=== PATIENT | female | born 1995 | race African-American/Black ===

== ENCOUNTER 2016-12-16 15:56 | Emergency (ER) | payer SELFPAY ==
[2016-12-16 16:09] VITALS: BP 103/46
[2016-12-16] MEDS ORDERED: Ibuprofen TAB* 600 MG PO ONE (17:19)
--- NOTE | 2016-12-16 17:26 | UC ---
Head Injury HPI - HPI Summary HPI Summary: tripped on her way to the bathroom at 3am today, struck left bahai area on corner of bed. No LOC. Able to get up right away. Went back to bed, then got up and went to work. Progressive headache and sore back as the day went on. Headache is circumferential. Tenderness at left bahai, no significant bruising or swelling evident. No nausea or vomiting. No trouble walking, though describes a mild dizziness "like I'll tip sideways". No recent head injuries. Didn't take anything for headache. Vincent noticed she was subdued and not her usual self, sent her home early and told her to get evaluated. - History Of Current Complaint Chief Complaint: Felix Stated Complaint: HEAD INJURY WITH DIZZINESS Time Seen by Provider: 12/16/16 17:11 Hx Obtained From: Patient Hx Last Menstrual Period: 12/03/16 Onset/Duration: Sudden Onset, Lasting Hours - 14 Severity Currently: Mild Severity Initially: Moderate Character: Dull, Throbbing, Pressure Aggravating Factor(s): Other - noise, bright lights Alleviating Factor(s): Nothing Associated Signs And Symptoms: Positive: Neck Pain - mild, just now apparent. Negative: LOC (Time In Secs./Mins/Hrs), LOC Duration Unknown, Confusion, Memory Loss, Seizure, Epistaxis, Dental Malocclusion, Nausea, Vomiting - Risk Factors SDH Risk Factor: Negative - Allergies/Home Medications Allergies/Adverse Reactions: Allergies Allergy/AdvReac Type Severity Reaction Status Date / Time Latex Allergy Severe THROAT Verified 10/25/16 16:42 SWELLING, ITCHING Penicillins Allergy Mild Hives Verified 10/25/16 16:40 Home Medications: Home Medications NK [No Home Medications Reported] 12/16/16 [History Confirmed 12/16/16] PMH/Surg Hx/FS Hx/Imm Hx Endocrine History Of: Denies: Diabetes, Thyroid Disease, Hyperthyroidism, Hypothyroidism, Dyslipidemia Cardiovascular History Of: Denies: Cardiac Disorders, Hypertension, Pacemaker/ICD, Myocardial Infarction , Congestive Heart Failure, Atrial Fibrillation, Deep Vein Thrombosis, Bleeding Disorders Respiratory History Of: Reports: Asthma Denies: COPD, Bronchitis, Pneumonia, Pulmonary Embolism GI/ History Of: Denies: Gastroesophageal Reflux, Ulcer, Gastrointestinal Bleed, Gall Bladder Disease, Kidney Stones, Diverticulitis, Renal Disease, Urosepsis Neurological History Of: Denies: TIA, CVA, Dementia, Seizures, Migraine Psychological History Of: Denies: Anxiety, Depression, Bipolar Disorder, Schizophrenia, Post Traumatic Stress Disorder Cancer History Of: Denies: Lung Cancer, Colorectal Cancer, Breast Cancer, Prostate Cancer, Cervical Cancer Other History Of: Negative For: HIV, Hepatitis B, Hepatitis C, Anticoagulant Therapy - Surgical History Surgical History: Yes Surgery Procedure, Year, and Place: Hernia repair as child - Family History Known Family History: Positive: Hypertension, Diabetes Negative: Cardiac Disease - Social History Occupation: Employed Full-time - works 2 jobs Lives: With Family Alcohol Use: None Substance Use Type: None Smoking Status (MU): Never Smoked Tobacco Household Exposure Type: Cigarettes Review of Systems Constitutional: Fatigue Skin: Other - tenderness left bahai Eyes: Photophobia - mild ENT: Negative Respiratory: Negative Cardiovascular: Negative Gastrointestinal: Negative Genitourinary: Negative Motor: Negative Neurovascular: Negative Musculoskeletal: Negative Neurological: Headache, Other - slight dizziness, doesn't affect walking Psychological: Negative All Other Systems Reviewed And Are Negative: Yes Physical Exam Triage Information Reviewed: Yes Appearance: Well-Appearing, No Pain Distress, Well-Nourished Vital Signs: Initial Vital Signs Temp 98 F 12/16/16 16:04 Pulse 83 12/16/16 16:04 Resp 16 12/16/16 16:04 BP 103/46 12/16/16 16:04 Pulse Ox 98 12/16/16 16:04 Vital Signs Reviewed: Yes Eye Exam: Normal Eyes: Positive: Conjunctiva Clear, Other: - fundi flat with sharp disc margins ENT Exam: Normal ENT: Positive: Pharynx normal, TMs normal - no hemotympanum Dental Exam: Normal Neck exam: Normal Neck: Positive: Supple, Tenderness @ - mild, diffuse, posterior muscles Respiratory Exam: Normal Cardiovascular Exam: Normal Musculoskeletal Exam: Other - several spots on upper back that are tender, she says she twisted and back hit floor when she fell Neurological Exam: Normal Neurological: Positive: Alert, Muscle Tone Normal Psychological Exam: Normal Skin Exam: Normal - no bruising or swelling apparent around left bahai Head Injury Course/Dx - Differential Dx/Diagnosis Differential Diagnosis/HQI/PQRI: Cerebral Contusion, Concussion Without LOC, Intracranial Bleed Provider Diagnoses: mild concussion Discharge - Discharge Plan Condition: Stable Disposition: HOME Patient Education Materials: Concussion (ED) Forms: *Work Release Referrals: No Primary Care Phys,NOPCP [Primary Care Provider] -
== END 2016-12-16 17:33 | disposition home or self-care (01) ==
LOC: UCEAST 15:56
DX: S06.0X0A Concussion without loss of consciousness, initial encounter (principal); W01.190A Fall on same level from slipping, tripping and stumbling with subsequent striking against furniture, initial encounter; Y93.01 Activity, walking, marching and hiking; Y92.009 Unspecified place in unspecified non-institutional (private) residence as the place of occurrence of the external cause; M54.2 Cervicalgia
CPT/HCPCS: 99211; A9270-GY; G0463

== ENCOUNTER 2017-03-29 11:18 | Emergency (ER) | payer SELFPAY ==
[2017-03-29 11:32] VITALS: BP 113/71
--- NOTE | 2017-03-29 11:59 | UC ---
Abdominal Pain Female HPI - HPI Summary HPI Summary: Woke feeling sweaty this morning with sharp RLQ abdominal pain. Feels somewhat like ovarian cysts she's had in the past, but this pain is unrelenting. Has had abdominal hernia repair, no other belly surgeries. - History of Current Complaint Hx Obtained From: Patient Hx Last Menstrual Period: 02/28/17 ?: No Onset/Duration: Gradual Onset, Lasting Hours Timing: Constant Severity Initially: Moderate Severity Currently: Moderate Location: Discrete At: RLQ Radiates: No Character: Sharp Aggravating Factor(s): Movement, Deep Breaths Alleviating Factor(s): Nothing Associated Signs and Symptoms: Positive: Nausea <Laila Michaels - Last Filed: 03/29/17 12:08> <Arlene Esposito - Last Filed: 03/29/17 12:41> - History of Current Complaint Chief Complaint: UCAbdominalPain Stated Complaint: RIGHT SIDE PAIN Time Seen by Provider: 03/29/17 11:34 Allergies/Adverse Reactions: Allergies Allergy/AdvReac Type Severity Reaction Status Date / Time Latex Allergy Severe THROAT Verified 03/29/17 11:32 SWELLING, ITCHING Penicillins Allergy Mild Hives Verified 03/29/17 11:32 Home Medications: Home Medications Acetaminophen [Acetaminophen Extra Stren] 2 tab PO Q6HR PRN 03/29/17 [History Confirmed 03/29/17] PMH/Surg Hx/FS Hx/Imm Hx Endocrine History Of: Denies: Diabetes, Thyroid Disease, Hyperthyroidism, Hypothyroidism, Dyslipidemia Cardiovascular History Of: Denies: Cardiac Disorders, Hypertension, Pacemaker/ICD, Myocardial Infarction , Congestive Heart Failure, Atrial Fibrillation, Deep Vein Thrombosis, Bleeding Disorders Respiratory History Of: Reports: Asthma Denies: COPD, Bronchitis, Pneumonia, Pulmonary Embolism GI/ History Of: Denies: Gastroesophageal Reflux, Ulcer, Gastrointestinal Bleed, Gall Bladder Disease, Kidney Stones, Diverticulitis, Renal Disease, Urosepsis Neurological History Of: Denies: TIA, CVA, Dementia, Seizures, Migraine Psychological History Of: Denies: Anxiety, Depression, Bipolar Disorder, Schizophrenia, Post Traumatic Stress Disorder Cancer History Of: Denies: Lung Cancer, Colorectal Cancer, Breast Cancer, Prostate Cancer, Cervical Cancer Other History Of: Negative For: HIV, Hepatitis B, Hepatitis C, Anticoagulant Therapy - Surgical History Surgical History: Yes Surgery Procedure, Year, and Place: Hernia repair as child - Family History Known Family History: Positive: Hypertension, Diabetes Negative: Cardiac Disease - Social History Alcohol Use: Rare Substance Use Type: None Smoking Status (MU): Never Smoked Tobacco Household Exposure Type: Cigarettes <Laila Michaels - Last Filed: 03/29/17 12:08> Review of Systems Constitutional: Negative Skin: Negative Eyes: Negative ENT: Negative Respiratory: Negative Cardiovascular: Negative Gastrointestinal: Abdominal Pain Genitourinary: Negative Motor: Negative Neurovascular: Negative Musculoskeletal: Negative Neurological: Negative Psychological: Negative All Other Systems Reviewed And Are Negative: Yes <Laila Michaels - Last Filed: 03/29/17 12:08> Physical Exam Triage Information Reviewed: Yes Appearance: Well-Appearing, Well-Nourished, Pain Distress - mild-mod with movement Vital Signs: Initial Vital Signs Temp 97.5 F 03/29/17 11:27 Pulse 85 03/29/17 11:27 Resp 03/29/17 11:27 BP 113/71 03/29/17 11:27 Pulse Ox 99 03/29/17 11:27 Vital Signs Reviewed: Yes Eye Exam: Normal Eyes: Positive: Conjunctiva Clear ENT Exam: Normal ENT: Positive: Normal ENT inspection, Hearing grossly normal, Pharynx normal, TMs normal Dental Exam: Normal Neck exam: Normal Neck: Positive: Supple Respiratory Exam: Normal Respiratory: Positive: Chest non-tender, Lungs clear, Normal breath sounds, No respiratory distress, No accessory muscle use Cardiovascular Exam: Normal Cardiovascular: Positive: RRR <Laila Michaels - Last Filed: 03/29/17 12:08> Vital Signs: Initial Vital Signs Temp 97.5 F 03/29/17 11:27 Pulse 85 03/29/17 11:27 Resp 03/29/17 11:27 BP 113/71 03/29/17 11:27 Pulse Ox 99 03/29/17 11:27 <Arlene Esposito - Last Filed: 03/29/17 12:41> Abd Pain Female Course/Dx - Differential Dx/Diagnosis Provider Diagnoses: RLQ abdominal pain - Physician Notification/Consults Discussed Patient Care With: JAREN Vee Instructed by Provider To: MD Will See In ED <Laila Michaels - Last Filed: 03/29/17 12:08> Discharge <Laila Michaels - Last Filed: 03/29/17 12:08> <Arlene Esposito - Last Filed: 03/29/17 12:41> - Discharge Plan Condition: Stable Disposition: AGAINST MEDICAL ADVICE Referrals: No Primary Care Phys,NOPCP [Primary Care Provider] - Attestation Statement User Type: Provider - I was available for consult. This patient was seen by the JC. The patient was not presented to, seen by, or examined by me. -Ljrosales <Arlene Esposito - Last Filed: 03/29/17 12:41> Addendum entered and electronically signed by Laila Michaels NP 03/29/17 12:12 : UC Addendum Addendum: Additional physical exam notes: Abdomen soft and diffusely tender, positive tenderness at McBurney's point. +BS x 4quad, no mass no organomegaly. Ortho: moving all extremities normally with normal strength, no visible swelling Neuro: alert, stable gait, no tremor, normal speech Mood: affect appropriate skin: wwp, no visible lesions
== END 2017-03-29 12:07 | disposition left against medical advice (07) ==
LOC: UCEAST 11:18
DX: R10.31 Right lower quadrant pain (principal)
CPT/HCPCS: 81003; 84702; 99212; G0463

== ENCOUNTER 2019-03-05 13:09 | Emergency (ER) | payer OTHER ==
--- OUTSIDE RECORDS SUMMARY | 2019-03-05 13:13 | XMS REPORT | Continuity of Care Document ---
:1995 Author Organization [facility] Address [address], [place] [id number] Phone Care Team Providers Name Role Phone Laurita Carballo NP Unavailable Unavailable Allergies, Adverse Reactions, Alerts Substance Reaction Status Penicillins Hives/Skin Rash Active latex Trouble Breathing Active Medications Medication Instructions Dosage Effective Dates Status Comments (start - stop) ibuprofen 400 mg administer 2 tab PO in - Active tablet clinic Liletta 19.5 mcg/24 Insert IU - Active hour (4 years) intrauterine device Problems Condition Effective Dates (start - Clinical Status Comments stop) Human immunodeficiency virus [HIV] - counseling Encounter for test, result negative Encounter for insertion of intrauterine contraceptive device Encntr screen for infections w sexl mode of transmiss Encounter for oth general cnsl and advice on contraception Encounter for initial prescription of contraceptive pills Female pelvic inflammatory disease, unspecified Unspecified hemorrhoids Encounter for surveillance of contraceptive pills Female pelvic inflammatory disease, unspecified Human immunodeficiency virus [HIV] - counseling Encounter for oth general cnsl and - advice on contraception Body mass index (BMI) 24.0-24.9, adult Pelvic and perineal pain Female pelvic inflammatory disease, unspecified Encntr screen for infections w sexl mode of transmiss Encounter for initial prescription of contraceptive pills Dysuria Encounter for screening for malignant neoplasm of cervix Encounter for oth screening for malignant neoplasm of breast Procedures Procedure Date No information Results Test Name Date and Time Measure Units Reference Range Abnormal Flag Status Comments No information Advance Directives Directive Yes / No Effective Date File Name No information Encounters Encounter Practice Location Reason(s) Diagnoses Date Provider Providers Description For Visit Copied on Encounter [facility] [place] . [address], [facility], [address] [place], [place], [address], [place], tel:[phone] [place], [id number], [place] tel:[phone] [facility] Human Apr-2 [place]erring [facility] [place] immunodeficiency emmer Provider: [facility] virus [HIV] 9 Sue[place]. [place] Finger counselingEncounte [address] [place] [facility], [address] [place] , [facility], [address] [place] test, result [place], [address], [place], [place], [address]. [address], [place], for insertion of tel:+[phone] [place], [phone], intrauter[place] [id number] [place], [address]. [place] contraceptive tel:[phone] tel:[phone] deviceEncntr [phone] [id number] screen for infections w sexl mode of transmissEncounter for oth general cnsl and advice on contraception [facility] Encounter for Apr-2 [facility] [place] initial . [address] Provider: [facility] prescription of [address] [place] [address], [facility], [facility], 620 pillsFemale pelvic [place], [address] [place], [address], [address], [place], disease, tel:+60 [place], [place], [place]pec[place] [id number] [place], [address]. [id number], fied hemorrhoids tel:[phone] [place] [phone] tel:[phone] [facility] Encounter for Apr-0 [place] [facility]erring [facility] [place] surveillance of Marissa. 620 Provider: [facility] contraceptive [address] [place] Marissa Finger pillsFemale pelvic [address], [place], [address] [place], [address] [place], [place], [address], [address], St, [place], unspecified [place]. [place], [address]. [id number], [place] tel:[phone] [facility] Human Apr-0 [place] Referring [facility] [place] immunodeficiency 5-201 Jam[place]. [address] Provider: [facility] virus [HIV] [address] [place] [address] counselingEncounte [address], [facility], [address] r for oth general [place], , [address] [place], [address], [address], [place], contraceptionBody tel:[phone] [place], [place], mass index (BMI) [id number] [place], [address]. [id number], 24.0-24.9, tel:[phone] [place] adultPelvic and [id number] tel:[phone] perineal [phone] painFemale pelvic inflammatory disease, unspecifiedEncntr screen for infections w sexl mode of transmissEncounter for initial prescription of contraceptive pillsDysuriaEncoun ter for screening for malignant neoplasm of cervixEncounter for oth screening for malignant neoplasm of breast Family History Family Member Diagnosis Age At Onset 1st degree relative No hx of coronary heart disease (female <65, male <55) 1st degree relative No hx of cancer of breast, colon, endometrium or ovary Sister Family history of Cervical Cancer 24 1st degree relative No hx of venous thromboembolism Immunizations Vaccine Date Status Comments No information Payers Payer name Insurance type Covered republican ID Authorization(s) Cecil OWUSU [facility] CI [id number] Social History Type Description Quantity Date Captured Comments Alcohol Use Details Unknown Caffeine Use Details Unknown Tobacco Use Status Unknown Smoking Status Never smoker Sex Female Vital Signs Date / Height Weight BMI Pulse Blood Temperature Respiratory Body Head BMI Pulse Inhaled Time: Rate Pressure Rate Surface Circumference percentile Ox Ox Area No information Chief Complaint And Reason For Visit No information Reason For Referral Reason For Referral No information Plan Of Treatment Date Type Action Status No information History Of Present Illness Encounter Date Complaint History Of Present Illness No information Functional Status Date Functional Assessment No information Medications Administered Medication Instructions Dosage Effective Dates (start - stop) Status Comments No information Instructions Date Instruction Additional Information No information Assessments Type Assessment Date No information Goals Health Concern Goal Type Priority Status Date No information Medical Equipment Description Device [place] Device Identifier Effective Dates (start - stop ) Status No information Mental Status Date Cognitive Assessment No information Health Concerns Observation Date No information Concern Status Date No information
--- OUTSIDE RECORDS SUMMARY | 2019-03-05 13:14 | XMS REPORT | Continuity of Care Document ---
:1995 Author Organization [facility] Address [address], [place] [id number] Phone Care Team Providers Name Role Phone Erin MIRANDA, Jossie Unavailable Unavailable Allergies, Adverse Reactions, Alerts Substance [...] malignant neoplasm of breast Procedures Procedure Date PREVENTIVE COUNSELING, Under 8 Minutes URINE TEST N.GONORRHOEAE, DNA, AMP PROB CHYLMD DNA, AMP PROBE IUD -LILETTA Tray Fee INSERT INTRAUTERINE DEVICE Height/Weight BLOOD PRESSURE Med.Svc. Bimanual Pelvic Method Initiation OTHER Medical Services Contraceptive Tile Layer.Svc. Other Tile Layer.Svc. STI Results Test Name Date and Time Measure Units Reference Range Abnormal Flag Status Comments Panel Description: High Sensitivity Urine Test Final High Sensitivity Urine 10:15:54 NegativeInternal Quality Final Test Control: Positive NOTE: This patient has pending results not included in this document. Advance Directives Directive Yes / No Effective Date File Name No information Encounters Encounter Practice Location Reason(s) Diagnoses Date Provider Providers Description For Visit Copied on Encounter [facility] Human [facility]erring [facility] [place] Insertion immunodeficiency [facility] Provider: Ana Lilia (chief virus [HIV] 9 Sueane. Sueane Finger complaint) counselingEncounte [address] [place] [facility], [address] [place] , [facility], [address] [place] test, result [place], [address] [place] [address], [place], [place], [address]. [place], for insertion of tel:[phone] [place], [id number], intrauter[place] [id number] [place], [address]. [place] contraceptive tel:[phone] tel:[phone] deviceEncntr [phone] screen for infections w sexl mode of transmissEncounter for oth general cnsl and advice on contraception [facility] Encounter for Jan- [facility] [place] initial Laurita. 620 Provider: Ana Lilia prescription of [address] [place] [address] contrace[address], [place], [facility], 620 pillsFemale pelvic [place], [address] [place], [address] [place], St, [place], disease, tel:[phone] [place], [place], unspecified[place]pec[place] [id number] [place], [address]. [id number], fied hemorrhoids tel:[phone] [place] [phone] tel:[phone] [facility] Encounter for Apr-0 [place] Referring [facility] [place] surveillance of 7-201 Marissa. 620 Provider: [place] contraceptive [address] [place] Marissa Finger pillsFemale pelvic [address], [place], [address] [place], [address] [place], [place], [address], [address], St, [place], unspecified [place]. [place], [place], [address]. [id number], [place] tel:[phone] [facility] Apr-0 [place] Referring [facility] [place] immunodeficiency 5-201 Jamila. 620 Provider: [place] virus [HIV] [address] [place] [address] counselingEncounte [address], [place] [facility], 620 r for oth general [place], , [address] [place], [address] [place] St, [place], contraceptionBody tel:+ [place], [place], mass index (BMI) [id number] [place], [address]. [id number], 24.0-24.9, tel:+[phone] [place] adultPelvic and [id number] tel:+[phone] perineal [phone] painFemale pelvic inflammatory disease, unspecifiedEncntr screen for [...] information Payers Payer name Insurance type Covered democrat ID Authorization(s) Cecil OWUSU [facility] CI [id number] Social History Type Description Quantity Date Captured Comments Alcohol Use Details Unknown Caffeine Use Details Unknown Tobacco Use Status Current non-smoker Smoking Status Never smoker Non-Smoking Tobacco : No Details Available : No Details Available 2018 Use Details Sex Female Vital Signs Date / Height Weight BMI Pulse Blood Temperature Respiratory Body Head BMI Pulse Inhaled Time: Rate Pressure Rate Surface Circumference percentile Ox Ox Area 64.00 126.00 21.6 in lbs 3 mm[Hg] 10:00 kg/m AM eter (2) Chief Complaint And Reason For Visit Most recent encounter only, dated '02/22/2019 09:30'. IUC Insertion ( chief complaint) Reason For Referral Reason For Referral No information Plan Of Treatment Date Type Action Status No information History Of Present Illness Encounter Date Complaint History Of Present Illness No information Functional Status Date Functional Assessment No information Medications Administered Medication Instructions Dosage Effective Dates (start - stop) Status Comments No information Instructions Date Instruction Additional Information No information Assessments Type Assessment Date assessment Human immunodeficiency virus [HIV] counseling assessment Encounter for test, result negative assessment Encounter for insertion of intrauterine contraceptive device assessment Encntr screen for infections w sexl mode of transmiss assessment Encounter for oth general cnsl and advice on contraception 2018 Goals Health Concern Goal Type Priority Status Date No information Medical Equipment Description Device [place] Device Identifier Effective Dates (start - stop ) Status No information Mental Status Date Cognitive Assessment No information Health Concerns Observation Date No information Concern Status Date No information
[2019-03-05] MEDS ORDERED: Ibuprofen TAB* 600 MG PO ONE (15:54)
--- NOTE | 2019-03-05 16:40 | UC ---
Abdominal Pain Female HPI - HPI Summary HPI Summary: 23 year old female with no PMH presents with increased pain, bleeding after having Mirena IUD inserted 02/22. She states she had confirmed flu last week with body aches, chills, fever. She started feeling better past few days, but now cramping, bleeding is worsening. IUD inserted during menses, noted menses decreased to just spotting, but now increased to 6 tampons/ day. + feeling weaker, lightheaded, but also believes this may be due to flu symptoms. [facility] - History of Current Complaint Chief Complaint: [facility]CGU Stated Complaint: PERSONAL Time Seen by Provider: 03/05/19 14:30 Hx Obtained From: Patient Hx Last Menstrual Period: 02/28/17 ?: No Onset/Duration: Sudden Onset, Lasting Weeks, Still Present Severity Initially: Moderate Severity Currently: Moderate Pain Intensity: 5 Pain Scale Used: 0-10 Numeric Location: Suprapubic, Other - lower back, epigastric Radiates: No Radiates to: Flank Character: Cramping, Sharp Aggravating Factor(s): Movement Alleviating Factor(s): Bowel Movement - + diarrhea at times. Allergies/Adverse Reactions: Allergies Allergy/AdvReac Type Severity Reaction Status Date / Time latex Allergy Swelling Verified 03/05/19 13:23 Of Face,Lips,& Throat Penicillins Allergy Hives Verified 03/05/19 13:23 Home Medications: Home Medications Levonorgestrel (Iud) [Mirena IUD] 20 mcg IU DAILY WITH MEAL 03/05/19 [History Confirmed 03/05/19] PMH/Surg Hx/FS Hx/Imm Hx Previously Healthy: Yes Other History Of: Negative For: HIV, Hepatitis B, Hepatitis C, Anticoagulant Therapy - Surgical History Surgical History: Yes Surgery Procedure, Year, and Place: Hernia repair as child - Family History Known Family History: Positive: Hypertension, Diabetes Negative: Cardiac Disease - Social History Alcohol Use: Occasionally Substance Use Type: Marijuana Smoking Status (MU): Never Smoked Tobacco Household Exposure Type: Cigarettes Review of Systems All Other Systems Reviewed And Are Negative: Yes Constitutional: Positive: Chills, Fatigue Genitourinary: Positive: Abnormal Bleeding Musculoskeletal: Positive: Myalgia Is Patient Immunocompromised?: No Physical Exam Triage Information Reviewed: Yes Appearance: Well-Appearing, Well-Nourished, Pain Distress - mild to moderate Vital Signs: Initial Vital Signs Temp 97.8 F 03/05/19 13:19 Pulse 85 03/05/19 13:19 Resp 18 03/05/19 13:19 BP 108/66 03/05/19 13:19 Pulse Ox 100 03/05/19 13:19 Vital Signs Reviewed: Yes Eyes: Positive: Conjunctiva Clear Abdomen Description: Positive: No Organomegaly, Soft, Bruit, Other: - minimal tenderness to deep palpation over superpubic area, no CVA tenderness + mild episgastric tederness with palpation .. Negative: CVA Tenderness (R), CVA Tenderness (L), Distended, Guarding, Hepatomegaly, Splenomegaly Neurological Exam: Normal Psychological Exam: Normal Skin Exam: Normal Abd Pain Female Course/Dx - Course Course Of Treatment: US- IUD in place, no abnormalities. Pain medication given, follow up with PCP for blood work, hat body sorter for removal if symptoms persist, Go to ER with worsening symptoms. - Differential Dx/Diagnosis Provider Diagnosis: Uterine bleeding Discharge - Sign-Out/Discharge Documenting (check all that apply): Patient Departure All imaging exams completed and their final reports reviewed: Yes - Discharge Plan Condition: Good Disposition: HOME Prescriptions: HYDROcodone/ACETAMIN 5-325 MG* [Preston 5-325 TAB*] 1 tab PO Q8H PRN #6 tab MDD 3 PRN Reason: Pain Ketorolac TAB * [Toradol TAB *] 10 mg PO Q8H PRN #9 tab PRN Reason: muscle cramps, pain Patient Education Materials: Intrauterine Device (DC) Referrals: Татьяна Perez MD [Primary Care Provider] - Nichelle Callejas MD [Medical Doctor] - Candice Cooper MD [Medical Doctor] - Additional Instructions: - Follow up with primary physician for blood work, re-evaluation if bleeding does not decrease in 2-3 days - Go to ER with increased cramping, pain, fever > 102, increased bleeding, lightheadedness, dizziness. - Follow up with OB[facility] or [facility] - Toradol every 8 hours as needed for cramping, take with increased fluids and food - Preston as needed for severe pain - Billing Disposition and Condition Condition: GOOD Disposition: Home
[2019-03-05 16:52] VITALS: BP 107/66
== END 2019-03-05 16:45 | disposition home or self-care (01) ==
LOC: UCEAST 13:09
DX: N93.9 Abnormal uterine and vaginal bleeding, unspecified (principal); N83.02 Follicular cyst of left ovary; Z97.5 Presence of (intrauterine) contraceptive device; R68.83 Chills (without fever); R53.83 Other fatigue; R42 Dizziness and giddiness; M79.10 Myalgia, unspecified site; Z88.0 Allergy status to penicillin; Z91.040 Latex allergy status
CPT/HCPCS: 76830; 99212; A9270-GY; G0463